=== PATIENT | female | born 1960 | race Caucasian/White ===

== ENCOUNTER 2016-04-26 03:47 | Emergency (ER) | payer OTHER ==
[~2016-04-26] VITALS: Ht 157.5 cm; Wt 118.0 kg
[~2016-04-26 03:47] MED LIST: ASPIR-LOW81 MG PO; ATORVASTATIN CA40 MG PO; CIPRO500 MG PO; MACROBID100 MG PO; NAPROSYN500 MG PO; NOHOMEMEDS; PYRIDIUM100 MG PO
[2016-04-26 04:28] LABS: HEMATOCRIT 37.1 % (36.0-46.0); MCH 28.3 PG (29.0-34.0); MCHC 32.6 G/DL (30.0-36.0); MCV 86.7 FL (83-99); MEAN PLAT.VOLUME 9.9 uM^3 (9.5-12.4); PLATELET COUNT 399 K/uL (156-360); RBC DIS.WIDTH-SD 43.6 % (39-53); RED BLOOD COUNT 4.28 M/uL (3.80-5.20); WHITE BLOOD COUNT 14.2 K/uL (4.1-10.2)
[2016-04-26 04:39] LABS: CHLORIDE 105 mEq/L (99-109); SODIUM 141 mEq/L (136-147)
[2016-04-26 04:41] LABS: GLUCOSE 148 mg/dL (70-99)
[2016-04-26 04:42] LABS: ANION GAP 11 MEQ/L (2-14)
[2016-04-26 04:45] LABS: GFR ESTIMATE (CALCULATED) > 59 mL/min/; UREA NITROGEN (BUN) 12 mg/dL (9-23)
[2016-04-26 04:48] LABS: TROP-I INTERPRETATION NEGATIVE; TROPONIN-I 0.01 ng/mL (0.0-0.30)
[2016-04-26 04:53] LABS: QUANTITATIVE HCG < 4.0 MIU/ML
[2016-04-26] MEDS ORDERED: PREDNISONE20 MG PO (06:07)
[2016-04-26] MEDS ORDERED: TRAMADOL HCL50 MG PO (06:07)
[2016-04-26 06:30] VITALS: BP 148/79
[2016-04-26 10:05] LABS: LYME DISEASE SEROLOGY SCREEN NEGATIVE (NEGATIVE)
== END 2016-04-26 06:32 | disposition home or self-care (01) ==
LOC: EME 03:47
PROVIDERS: Emergency Medicine
DX: M54.12 Radiculopathy, cervical region (principal); R07.89 Other chest pain; E78.5 Hyperlipidemia, unspecified; I10 Essential (primary) hypertension; Z86.73 Personal history of transient ischemic attack (TIA), and cerebral infarction without residual deficits
CPT/HCPCS: 71020; 72040; 80048; 84484; 84702; 85027; 86618; 93005; 99281; 99285; J7512

== ENCOUNTER 2016-05-01 22:40 | Observation (INO) | payer OTHER ==
[~2016-05-01] VITALS: Ht 157.5 cm; Wt 124.6 kg
[~2016-05-01 22:40] MED LIST changes: +PREDNISONE20 MG PO; +TRAMADOL HCL50 MG PO
[2016-05-01 23:47] LABS: BASOPHIL COUNT 0.1 K/uL (0-0.1); EOSINOPHIL (%) 1.7 % (0-5); EOSINOPHIL COUNT 0.3 K/uL (0-0.3); HEMATOCRIT 39.2 % (36.0-46.0); IMMATURE GRANULOCYTE (%) 0.7 % (0.0-0.7); IMMATURE GRANULOCYTE COUNT 1.3 K/uL; LYMPHOCYTE COUNT 3.4 K/uL (1.0-2.8); MCH 28.2 PG (29.0-34.0); MCHC 32.4 G/DL (30.0-36.0); MCV 86.9 FL (83-99); MEAN PLAT.VOLUME 9.8 uM^3 (9.5-12.4); MONOCYTE (%) 6.3 % (3-12); MONOCYTE COUNT 1.2 K/uL (0-0.8); NEUTROPHIL (%) 72.7 % (45-76); NEUTROPHIL COUNT 13.5 K/uL (1.8-6.4); PLATELET COUNT 396 K/uL (156-360); RBC DIS.WIDTH-CV 14.4 % (11.8-14.6); RBC DIS.WIDTH-SD 44.7 % (39-53); RED BLOOD COUNT 4.51 M/uL (3.80-5.20); WHITE BLOOD COUNT 18.6 K/uL (4.1-10.2)
[2016-05-01 23:49] LABS: CHLORIDE 101 mEq/L (99-109); SODIUM 142 mEq/L (136-147)
[2016-05-01 23:51] LABS: GLUCOSE 93 mg/dL (70-99)
[2016-05-01 23:53] LABS: ANION GAP 11 MEQ/L (2-14); TOTAL BILIRUBIN 0.4 mg/dL (0.0-1.0)
[2016-05-01 23:55] LABS: ALKALINE PHOSPHATASE 103 IU/L (3-129); GFR ESTIMATE (CALCULATED) > 59 mL/min/
[2016-05-01 23:56] LABS: UREA NITROGEN (BUN) 15 mg/dL (9-23)
[2016-05-01 23:59] LABS: TROP-I INTERPRETATION NEGATIVE; TROPONIN-I < 0.01 ng/mL (0.0-0.30)
[2016-05-02 00:51] LABS: ADD MIUA? NO; BILIRUBIN NEGATIVE; BLOOD NEGATIVE; COLOR YELLOW ((YELLOW)); GLUCOSE (STRIP) NEGATIVE; KETONES NEGATIVE; LEUKOCYTES NEGATIVE; NITRITE NEGATIVE; PROTEIN (STRIP) NEGATIVE; SPECIFIC GRAVITY 1.019 (1.000-1.030); UCUL ADDED? NO; UROBILINOGEN 0.2 MG/DL (0.2-1.0)
[2016-05-02] MEDS ORDERED: LISINOPRIL10 MG PO (01:00)
[2016-05-02 02:34] LABS: HDL CHOLESTEROL 39 MG/DL (Desirable>=50); LDL CHOLESTEROL 114 mg/dL (Desirable<100); NON-HDL CHOLESTEROL 162 mg/dL (Desirable<160); TOTAL CHOLESTEROL 201 mg/dL (Desirable<200); TRIGLYCERIDES 241 MG/DL (Normal: <150)
[2016-05-02 03:10] VITALS: BP 185/86
[2016-05-02 03:23] VITALS: BP 139/72
[2016-05-02 07:05] LABS: Estimated Average Glucose 126 mg/dL (70-123)
[2016-05-02 08:19] VITALS: BP 127/59
[2016-05-02 12:42] VITALS: BP 120/63
[2016-05-02] MEDS ORDERED: ATORVASTATIN CA20 MG PO (14:14)
== END 2016-05-02 16:22 | disposition home or self-care (01) ==
LOC: EME 22:40 → 5WEST 05-02 01:30 → EDOF 05-02 01:30 → 5WEST 05-02 02:51
PROVIDERS: Emergency Medicine
DX: I16.0 Hypertensive urgency (principal); I10 Essential (primary) hypertension; D72.829 Elevated white blood cell count, unspecified; T38.0X5A Adverse effect of glucocorticoids and synthetic analogues, initial encounter; E78.5 Hyperlipidemia, unspecified; E66.01 Morbid (severe) obesity due to excess calories; Z68.43 Body mass index [BMI] 50.0-59.9, adult; Z91.19 Patient's noncompliance with other medical treatment and regimen; Z86.73 Personal history of transient ischemic attack (TIA), and cerebral infarction without residual deficits
CPT/HCPCS: 70496; 70498; 70551; 71020; 80053; 80061; 81003; 83036; 84484; 85025; 93005; 93306; 99281; 99284; G0378; J0360; J7040

== ENCOUNTER → 2016-07-29 | Outpatient (CLI) | payer OTHER ==
[~2016-07-29] MED LIST changes: +ATORVASTATIN CA20 MG PO; +LISINOPRIL10 MG PO
== END | disposition home or self-care (01) ==
LOC: CDC 10:40
DX: R94.31 Abnormal electrocardiogram [ECG] [EKG] (principal); G56.01 Carpal tunnel syndrome, right upper limb
CPT/HCPCS: 93000

== ENCOUNTER 2016-08-03 21:35 | Emergency (ER) | payer OTHER ==
[~2016-08-03] VITALS: Ht 157.5 cm; Wt 117.2 kg
[2016-08-04] MEDS ORDERED: PREDNISONE10 M1 PO (00:14)
[2016-08-04] MEDS ORDERED: MOBIC15 MG PO (00:14)
[2016-08-04] MEDS ORDERED: TRAMADOL HCL50 MG PO (00:14)
[2016-08-04 00:29] VITALS: BP 130/71
== END 2016-08-04 00:35 | disposition home or self-care (01) ==
LOC: EME 21:35
DX: M19.90 Unspecified osteoarthritis, unspecified site (principal); E78.5 Hyperlipidemia, unspecified; I10 Essential (primary) hypertension; Z86.73 Personal history of transient ischemic attack (TIA), and cerebral infarction without residual deficits
CPT/HCPCS: 99281; 99284; J1885

== ENCOUNTER 2016-11-24 02:10 | Emergency (ER) | payer OTHER ==
[~2016-11-24] VITALS: Ht 157.5 cm; Wt 121.1 kg
[~2016-11-24 02:10] MED LIST changes: +MOBIC15 MG PO; +PREDNISONE10 M1 PO
[2016-11-24 02:12] VITALS: BP 145/94
[2016-11-24] MEDS ORDERED: ULTRAM50 MG PO (03:34)
[2016-11-24] MEDS ORDERED: MEDROL DOSEPAK4 MG PO (03:34)
== END 2016-11-24 03:47 | disposition home or self-care (01) ==
LOC: EME 02:10 → EXP 02:10
DX: M19.042 Primary osteoarthritis, left hand (principal); I10 Essential (primary) hypertension
CPT/HCPCS: 73140; 99281; 99283; J7512

== ENCOUNTER 2017-05-21 09:07 | Emergency (ER) | payer OTHER ==
[~2017-05-21] VITALS: Ht 157.5 cm; Wt 122.1 kg
[~2017-05-21 09:07] MED LIST changes: +MEDROL DOSEPAK4 MG PO; +ULTRAM50 MG PO
[2017-05-21] MEDS ORDERED: VIBRAMYCIN100 MG PO (11:53)
[2017-05-21 12:06] VITALS: BP 146/78
== END 2017-05-21 11:54 | disposition home or self-care (01) ==
LOC: EME 09:07
DX: L03.316 Cellulitis of umbilicus (principal)
CPT/HCPCS: 99281; 99283